=== PATIENT | male | born 1950 | race Caucasian/White ===

== ENCOUNTER → 2023-05-20 06:26 | Outpatient (REF) | payer MEDICARE, OTHER, SELFPAY ==
[2023-05-20 09:26] LABS: ALT (SGPT) 70 U/L (0-50); AST (SGOT) 40 U/L (17-59); Albumin 3.7 g/dl (3.5-5.0); Alkaline Phosphatase 134 U/L (38-126); Blood Urea Nitrogen 22 mg/dl (9-20); Calcium 9.6 mg/dl (8.4-10.2); Carbon Dioxide 26 mmol/L (22-30); Chloride 106 mmol/L (98-107); Glucose 118 mg/dl (70-99); HDL Cholesterol 46 mg/dl; LDL Cholesterol, Calculated 55 mg/dl; Potassium 4.4 mmol/L (3.5-5.1); Sodium 138 mmol/L (135-145); Total Bilirubin 0.8 mg/dl (0.2-1.3); Total Cholesterol 114 mg/dl (50-199); Total Protein 6.2 g/dl (6.3-8.2); Triglyceride 69 mg/dl (10-149); Very Low Density Lipoprotein 13 mg/dl (0-30); eGFR 54.07
[2023-05-20 09:56] LABS: Urine Albumin Negative (Neg - Trace); Urine Bilirubin Negative (Negative); Urine Character Clear (Clear); Urine Color Yellow; Urine Glucose Negative (Negative); Urine Ketone Negative (Negative); Urine Leukocyte Negative (Negative); Urine Nitrite Negative (Negative); Urine Occult Blood Negative (Negative); Urine Specific Gravity 1.015 (<1.030); Urine Urobilinogen Negative (Neg - 1+)
== END ==
LOC: HWLAB 06:26
PROVIDERS: ATTENDING PHYSICIAN Family Medicine
DX: R35.0 Frequency of micturition (principal); I10 Essential (primary) hypertension; E78.5 Hyperlipidemia, unspecified; N39.0 Urinary tract infection, site not specified; Z12.5 Encounter for screening for malignant neoplasm of prostate
CPT/HCPCS: 36415; 80053; 80061; 81003; G0103

== ENCOUNTER → 2023-05-26 06:32 | Outpatient (REF) | payer MEDICARE, OTHER, SELFPAY ==
[2023-05-26 10:05] LABS: Hematocrit 46.7 % (39.0-52.0); Hemoglobin 15.1 g/dL (13.0-18.0); Mean Corp Hgb Conc. 32.3 g/dL (33.0-37.0); Mean Corpuscular Hgb 31.2 pg (27.0-31.0); Mean Corpuscular Volume 96.5 fL (80.0-94.0); Mean Platelet Volume 11.2 fL (7.4-10.4); Platelet Count 267 10^3/uL (130-400); Red Blood Cell Count 4.84 10^6/uL (4.70-6.10); Red Cell Dist. Width 14.9 % (11.5-14.5); White Blood Cell Count 11.2 10^3/uL (4.8-10.8)
[2023-05-26 10:31] LABS: Free T4 1.26 ng/dl (0.78-2.19)
[2023-05-26 10:45] LABS: TSH 3.31 uIU/ml (0.47-4.68)
[2023-05-26 14:15] LABS: Lyme Antibody Screen, EIA Negative (Negative)
[2023-05-27 13:53] LABS: PSA Total 5.3 ng/mL (0.0-4.0)
== END ==
LOC: HWLAB 06:32
PROVIDERS: ATTENDING PHYSICIAN Family Medicine
DX: A69.20 Lyme disease, unspecified (principal); R35.0 Frequency of micturition; E03.9 Hypothyroidism, unspecified; R97.20 Elevated prostate specific antigen [PSA]
CPT/HCPCS: 36415; 84153; 84154; 84439; 84443; 85027; 86618

== ENCOUNTER → 2023-06-02 06:27 | Outpatient (REF) | payer MEDICARE, OTHER, SELFPAY ==
[2023-06-03 17:02] LABS: PSA Total 5.5 ng/mL (0.0-4.0)
== END ==
LOC: HWLAB 06:27
PROVIDERS: ATTENDING PHYSICIAN Specialist; FAMILY PHYSICIAN Family Medicine
DX: N40.1 Benign prostatic hyperplasia with lower urinary tract symptoms (principal); R97.20 Elevated prostate specific antigen [PSA]
CPT/HCPCS: 36415; 84153; 84154

== ENCOUNTER 2023-06-08 11:27 | Inpatient (IN) | payer MEDICARE, OTHER, SELFPAY ==
[2023-06-08] VITALS (13 sets, daily range): BP systolic 107–144; BP diastolic 76–99; BMI 26.7
[2023-06-08 08:02] LABS: % Basophils 0.1 % (0-2); % Eosinophils 1.8 % (0-6); % Immature Granulocytes 0.2 % (0-0.5); % Lymphocytes 16.2 % (20.5-51.1); % Monocytes 10.7 % (1.7-9.3); Absolute Eosinophils 0.2 10^3/uL (0-0.7); Absolute Lymphocytes 1.8 10^3/uL (1.2-3.4); Absolute Monocytes 1.2 10^3/uL (0.1-0.6); Hematocrit 46.5 % (39.0-52.0); Hemoglobin 15.6 g/dL (13.0-18.0); Mean Corp Hgb Conc. 33.5 g/dL (33.0-37.0); Mean Corpuscular Hgb 31.3 pg (27.0-31.0); Mean Corpuscular Volume 93.4 fL (80.0-94.0); Mean Platelet Volume 11.3 fL (7.4-10.4); Nucleated Red Blood Cells % 0 % (-); Platelet Count 246 10^3/uL (130-400); Red Blood Cell Count 4.98 10^6/uL (4.70-6.10); Red Cell Dist. Width 14.5 % (11.5-14.5); White Blood Cell Count 11.3 10^3/uL (4.8-10.8)
[2023-06-08 08:18] LABS: ALT (SGPT) 75 U/L (0-50); AST (SGOT) 38 U/L (17-59); Albumin 3.9 g/dl (3.5-5.0); Alkaline Phosphatase 129 U/L (38-126); Blood Urea Nitrogen 20 mg/dl (9-20); Calcium 9.4 mg/dl (8.4-10.2); Carbon Dioxide 23 mmol/L (22-30); Chloride 107 mmol/L (98-107); Glucose 115 mg/dl (70-99); Potassium 4.5 mmol/L (3.5-5.1); Sodium 135 mmol/L (135-145); Total Bilirubin 1.3 mg/dl (0.2-1.3); Total Protein 6.5 g/dl (6.3-8.2); eGFR > 60.00
--- NOTE | 2023-06-08 08:21 | ED.GENMED ---
History of Present Illness
General
Chief Complaint: Weakness
Source: patient
Time Seen by Provider: 06/08/23 08:01
Travel History
Have you had any contact with someone who has COVID-19?: No
Do you have any symptoms of coronavirus? Fever > 100 degrees, chills, cough, shortness of breath, sore throat, loss of taste or smell, muscle aches, or headache?: No
History of Present Illness
History of Present Illness:
72-year-old male presents to the emergency room complaining of feeling generalized weakness, dyspnea on exertion and some intermittent chest pressure over the past week or 2. Patient was actually seen by his primary care doctor for the symptoms and
did have some blood work sent. Patient has been unaware of a rapid heart rate. Patient has been experiencing insomnia over the past month or so as well. Sense of dyspnea and shortness of breath with exertion seems to be getting worse.
Phy Exam
Physical Exam
Physical Exam:
General: Awake, Alert, Oriented X3. No acute distress.
Vitals: Tachycardic
Head: Atraumatic
Eyes: Pupils equal, EOMI
Throat: Airway intact, no exudates
Neck: Trachea midline
Lungs: Clear and equal b/l
Heart: Tachycardic, irregular rate, no murmurs
Abd: Soft, Nontender, No pulsatile mass
Neuro: Nonfocal
Skin: Warm, dry, no rash
Extremities: pulses equal b/l, 1+ edema
Course
Orders/Labs/Results
Orders:
Orders
06/08/23 07:23
EKG [Electrocardiogram (*1)] Urgent
Reason for Study: Fatigue / Weakness
EKG- Treatment ONCE
06/08/23 07:47
CXR2 [CR Chest - 2 Views ] Urgent
Comment:
Reason For Exam: tachycardia
06/08/23 07:48
Complete Blood Count/With Diff Urgent
Comprehensive Metabolic Panel Urgent
NT-proBNP Urgent
Comment: ADD ON
Troponin I Urgent
06/08/23 08:20
Add On- LAB Urgent
Tests Added?: bnp
Diltiazem 125 mg/125 ml Nss [Cardizem] 125 mg in 125 ml IV NOW
Initial dose in mg/hr, then titrate:: 5
Titrate to keep:: Heart rate 80-100 bpm
Titrate by mg/hr:: 5 mg/hr
Frequency of titrations (minutes):: 15
Maximum dose in mg/hr:: 15
Diltiazem HCl [Cardizem] 15 mg IV NOW STA
06/08/23 10:18
Apixaban [Eliquis] 5 mg PO NOW STA
06/08/23 10:36
CARDIOLOGY CONSULT Routine
Consulting Provider: Telly Ren
Was physician already notified: Yes
06/08/23 11:00
Admit/Transfer Patient As Directed
Co-Sign Provider:
Level of Care: Inpatient admission
Assign to:: Telemetry
Physician / Group: Lakia/hospitalist
Diagnosis: A fib RVR, CHF
Reason for Telemetry: Arrhythmia
Date to Stop Telemetry: 06/11/23
Time to Stop Telemetry: 11:00
Reason for Hospitalization: A fib RVR, CHF
Expected length of stay greater than two midnights?: Yes
ELOS- Estimated Length of Stay in days: 3
I certify the patient meets the requirements for IP care: Yes
06/08/23 11:01
Code Status As Directed
Resuscitation Status: Full Code
06/08/23 11:12
Procalcitonin Urgent
PCT Algorithmm Indication: Respiratory
06/11/23 11:00
DC Protocol for Telemetry ONCE
Abnormal Lab Results
06/08/23
07:48
WBC 11.3 H 10^3/uL
(4.8-10.8)
MCH 31.3 H pg
(27.0-31.0)
MPV 11.3 H fL
(7.4-10.4)
Absolute Neuts (auto) 8.0 H 10^3/uL
(1.4-6.5)
Absolute Monos (auto) 1.2 H 10^3/uL
(0.1-0.6)
Lymphocytes % 16.2 L %
(20.5-51.1)
Monocytes % 10.7 H %
(1.7-9.3)
Glucose 115 H mg/dl
(70-99)
ALT 75 H U/L
(0-50)
Alkaline Phosphatase 129 H U/L
(38-126)
06/08/23 07:48
06/08/23 07:48
Vital Signs
Initial and Last Documented VS:
Initial Vital Signs
Temp Pulse Resp BP Pulse Ox
98.7 F 77 20 144/99 97
06/08/23 07:18 06/08/23 07:18 06/08/23 07:18 06/08/23 07:18 06/08/23 07:18
Last Documented Vital Signs
Temp Pulse Resp BP Pulse Ox
98.7 F 103 19 127/81 95
06/08/23 07:18 06/08/23 10:45 06/08/23 10:45 06/08/23 10:00 06/08/23 10:45
MDM/Problems Addressed
Differential Diagnosis Includes:
A-fib with rapid ventricular response, heart failure, electrolyte abnormality
MDM/Problems Addressed:
Patient presents with symptoms for about a week. EKG shows atrial fibrillation with rapid ventricular response. BNP mildly elevated. Chest x-ray shows changes in the right lower lung field which may represent heart failure or infiltrate. My
suspicion for acute pneumonia is low given no fever, no cough, normal white count. Patient has been in A-fib for an unknown period of time but likely at least a week. Therefore he is not a candidate for cardioversion. He was given a bolus of IV
Cardizem and started on an infusion to control his rate. He was given a dose of Eliquis. Patient will require hospitalization for rate control, cardiology evaluation.
*Radiology
Radiology exam reviewed: radiology read reviewed
*Pulse Oximetry
Patient hypoxic: no
*EKG
Interpreted by ED Provider?: Yes
Interpretation: abnormal
Heart Rate: 135
Rate: tachycardiac
Rhythm: a-fib
QRS Pattern: right bundle branch block
Ischemia: non-specific ST changes
*Chenille Machine Operator Interpretation
Rate: tachycardiac
Interpretation: abnormal
Heart Rate: 135
Rhythm: a-fib
*Critical Care Note
Total Time (30-74mins, 75-104mins- exclusive of procedures): 33 min
comment:
Critical care statement: A total of 33 minutes of critical care time was provided for this patient. This includes management of unstable vital signs, evaluation of the patient at bedside, reviewing the patient's pertinent medical records, discussion
with consultants, review of old EKGs and review of pertinent medical records. This time with separate from time utilized to perform the aforementioned documented procedures
ED Attending Note
-
Portions of this chart may have been created with voice recognition software.� Occasional wrong word or��sound alike� substitutions may have occurred due to the inherent limitations of voice recognition software.
Discharge Plan
Departure
Patient Disposition: Admit
Date of Disposition: 06/08/23
Time of Disposition: 10:15
Admit to: Telemetry
Presentation/result/management discussed w/ accepting MD/DO: Hospitalist
Condition: Fair
Discharge Problem:
Atrial fibrillation with RVR
Prescriptions:
No Action
ciprofloxacin HCl 500 MG tablet
500 mg PO BID Qty: 6 0RF
oxycodone-acetaminophen 5 MG/325 MG tablet
1 tab PO Q4HPRN PRN (Reason: pain) Qty: 20 0RF
Referrals:
Cortez Howell, [Family Provider] -
Interventions
Interventions:
*Risk Screen - Suicide Last Done: 06/08/23 07:22
*General Assessment Last Done: 06/08/23 07:22
*Neglect/Abuse Screening Last Done: 06/08/23 07:22
ED- Fall Risk Assessment Last Done: 06/08/23 10:59
*ED COVID-19 Vaccine History Last Done: 06/08/23 07:22
ED- Cardiac Assessment Last Done: 06/08/23 10:59
ED- Neurological Assessment Last Done: 06/08/23 10:59
ED- Pulmonary Assessment Last Done: 06/08/23 10:59
[2023-06-08 08:30] LABS: Troponin I 0.015 ng/ml
[2023-06-08] MEDS: CARDIZEM 15 MG IV (08:44)
[2023-06-08] MEDS: CARDIZEM 125 IV ×2 (08:45→17:33)
[2023-06-08 08:47] LABS: NT-proBNP 2210 pg/ml
--- NOTE | 2023-06-08 10:36 | HPS.HSE ---
Family Physician
-
Family Physician: Cortez Howell
Chief Complaint
-
lethargy/SOB/REYNOLDS
History of Present Illness
HPI: 72-year-old male PMH bladder cancer 8 years ago s/p surgery, HLD, HTN; p/w generalized weakness, lethargy, dyspnea on exertion and some intermittent chest pressure over the past 1-2 weeks.�He also noticed ankle swelling recently.
Patient was actually seen by his primary care doctor for these symptoms and had some blood work sent.�
Patient was unaware of a rapid heart rate.�
Medical History
Past Medical History
Past Medical History: Reports Other
Additional Past Medical History:
bladder cancer 8 years ago s/p surgery
HLD
HTN
Past Surgical History: Reports Other
Additional Past Surgical History:
bladder cancer 8 years ago s/p surgery
Social History
Tobacco: Former Smoker (quit Mar 2023 )
Alcohol: Occasional
Personal:
Living: With Family
Family History
Family History: Not pertinent
Allergies / Home Medications
Allergies reflects when Allergies were last updated in [facility].
Home Medications with original date entered in [facility]
Allergy/Medication List:
Medications on admission are unable to be verified or confirmed at this time.
Review of Systems
-
Respiratory: Reports See HPI and Trouble Breathing
Physical Exam
Vital Signs
Vital Signs
Temp Pulse Resp BP Pulse Ox
37.1 C 115 31 127/93 94
06/08/23 07:18 06/08/23 09:20 06/08/23 09:20 06/08/23 09:20 06/08/23 09:20
Physical Exam
General: Well Developed, Well Nourished, No Apparent Distress, Comfortable and Conversant
HEENT: NormoCephalic, Moist mucous membranes and Atraumatic
Respiratory: Clear and Non Labored Respirations; No Wheezes, Crackles or Accessory Resp Muscle Use
Cardiac: S1/S2 and Regular Rhythm; No Murmur or Rub
GI: Soft, Non Tender, Non Distended and Normal Bowel Sounds; No Organomegaly
Rectal: Deferred by Provider
Musculoskeletal: No Clubbing, No Cyanosis, Edema, Left Lower Extremity (mild) and Edema, Right Lower Extremity (mild)
Skin: Warm and Dry; No Rash
Neuro: Awake and Alert
Psych: Calm and Intact Judgment/Insight
Laboratory Results
-
06/08/23 07:48
06/08/23 07:48
Laboratory Results
Total Bilirubin 1.3 mg/dl (0.2-1.3) 06/08/23 07:48
AST 38 U/L (17-59) 06/08/23 07:48
ALT 75 U/L (0-50) H 06/08/23 07:48
Alkaline Phosphatase 129 U/L (38-126) H 06/08/23 07:48
Troponin I 0.015 ng/ml 06/08/23 07:48
Data Reviewed
-
Diagnostic Radiology: Image Personally Visualized and interpreted and Report Reviewed by me
Lab Data: Labs Reviewed by me
Impression/Plan
-
HPI: 72-year-old male PMH bladder cancer 8 years ago s/p surgery, HLD, HTN; p/w generalized weakness, lethargy, dyspnea on exertion and some intermittent chest pressure over the past 1-2 weeks.�He also noticed ankle swelling recently.
Patient was actually seen by his primary care doctor for these symptoms and had some blood work sent.�
Patient was unaware of a rapid heart rate.�
In the ED, pt was noted to be in A fib RVR. Cardizem drip started (with improved HR) and Eliquis ordered.
A/P:
# lethargy/SOB/REYNOLDS likely due to acute onset CHF relating to new onset A fib with RVR on admission
Started Cardizem drip, cont
Started Eliquis, cont
Start Lasix 40 mg IV daily, monitor daily weight
Check updated echo
Last echo was 2 years ago with EF 60-�65%.�Mild to moderate mitral regurgitation.
monitor in tele
recent TSH WNL at 3.31
Card CS
# CXR with RLL infiltrate
although read as pneumonia, however it is felt more likely due to CHF
Check procal to r/i or r/o pneumonia
hold Abx for now unless procal elevated
# likely reactive leucocytosis
# HTN
Cardizem drip as above
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
# HTN
AGRICULTURAL ENGINEER on Lipitor 10 mg daily
DVT ppx: Eliquis
FC
D/w at bedside
[2023-06-08] MEDS: ELIQUIS 5 MG PO ×2 (11:11→21:38)
[2023-06-08 11:54] LABS: Procalcitonin < 0.05 ng/ml (0.0-0.25)
[2023-06-08] MEDS: LASIX 40 MG IV ×2 (12:56→17:33)
--- NOTE | 2023-06-08 13:07 | PTCARENOTE ---
received pt from ED into 2251, afib on tele w HR 110, bp 130/97, + peripheral pulses, +1 edema to bilateral lower extremities. Lungs w fine crackles at bases, pox 96% on RA. +bs, tolerating PO intake. PIV x2 flush easily. Cardizem gtt infusing at
15ml/hr. Admission interview questions completed, pt was oriented to IVU room, questions encouraged.
--- NOTE | 2023-06-08 15:35 | CON.CAR ---
Consultation
Consultation Request
Date/Time Consultation Requested: 06/08/23, 10am
Date/Time Consultation Performed: 06/08/23, 2pm
Requesting Provider: Alva
Performing Provider: Mikal
Reason for Consultation: A fib with RVR
Medical History
-
Chief Complaint: SOB
History of Present Illness:
72 yo male with PMH of HTN, hyperlipidemia, bifascicular block, mild/moderate MR presents to ED with several weeks of REYNOLDS, palps, chest tightness, mild edema.
Found to be in new A fib with RVR, and also acute HF.
Past Medical History
Past Medical History: HTN, Hypercholesterolemia, Valvular Disease (mild/moderate MR) and Other (bladder cancer)
Past Surgical History: Orthopedic (carpal tunnel) and Other (bladder cancer resection)
Social History
Tobacco: Former Smoker
Family History
Family History: CAD (none in parents)
Allergies / Home Medications
Allergy/AdvReac Type Severity Reaction Status Date / Time
cefaclor [From Ceclor] Allergy Rash Verified 06/08/23 07:20
miocamycin Allergy Pharmacy Verified 06/08/23 07:20
to Review
mitomycin Allergy rash, fever Verified 06/08/23 07:20
Penicillins Allergy Rash Verified 06/08/23 07:20
Medication Instructions Recorded Confirmed Type
amlodipine 5 mg tablet 5 mg PO DAILY 06/08/23 06/08/23 History
aspirin 81 mg tablet 81 mg PO DAILY 06/08/23 06/08/23 History
atorvastatin 10 mg tablet 10 mg PO DAILY 06/08/23 06/08/23 History
telmisartan 80 mg tablet 80 mg PO DAILY 06/08/23 06/08/23 History
Review of Systems
-
History Source: Patient
All other systems: Negative unless noted
Constitutional: Fatigue
Respiratory: Trouble Breathing
Cardiac: Chest Pain and Palpitations
Musculoskeletal: Edema
Physical Exam
Vital Signs
Temp Pulse Resp BP Pulse Ox
97.9 F 106 16 130/97 96
06/08/23 12:32 06/08/23 12:32 06/08/23 12:32 06/08/23 12:32 06/08/23 13:40
Lab Results
06/08/23 07:48
06/08/23 07:48
Troponin I 0.015 ng/ml 06/08/23 07:48
Ivg-G-Fzaklvxhjiq Pept 2210 pg/ml 06/08/23 07:48
Physical Exam
General: Well Developed, Well Nourished and No Apparent Distress
HEENT: Normocephalic, Anicteric and Moist Mucous Membranes
Respiratory: Clear and Non Labored Respirations
Cardiac: S1/S2 (normal), Irregular Rhythm, Murmur (none) and Peripheral Edema (1+ LE edema)
GI: Soft, Non Tender and Non Distended
Musculoskeletal: No Clubbing, No Cyanosis and Edema (1+ LE edema)
Skin: Warm and Dry
Neuro: AO x 3
Psych: Calm
Impression / Plan
-
72 yo male with PMH of HTN, hyperlipidemia, bifascicular block, mild/moderate MR presents to ED with several weeks of REYNOLDS, palps, chest tightness, mild edema.
Found to be in new A fib with RVR, and also acute HF.
# A fib with RVR
-diltiazem drip: requires monitoring of tele
-if remains in A Fib in AM, will proceed with [facility]/DCCV given his symptoms
-CHADS2-VASC = 3. Eliquis 5mg bid for OAC.
# Acute HF, unknown type
-IV lasix (with monitoring of labs, tele, weight)
-echo tomorrow, and GDMT based on results
# HTN
-amlodipine held since on diltiazem
-telmisartan held to allow room for AV lucian agents
# Hyperlipidemia
-continue statin
# Bifascicular block
-stable on EKG
# Mild/moderate MR
-echo
Data Reviewed
-
EKG: Tracing Personally Visualized and interpreted (A fib with RVR, bifascicular block)
Medical Tests (Nuc Med, Echo etc): Report Reviewed by me (echo 09/2021: normal LVEF, mild LVH, mild/moderate MR)
Labs: Labs Reviewed by me
Old Records: Reviewed
[2023-06-08] MEDS: LIPITOR 10 MG PO (17:33)
--- NOTE | 2023-06-08 20:20 | PTCARENOTE ---
Assumed care of patient at change of shift. Patient AAO3, VSS, and denies any pain or discomfort. Ambulates self in room w/out difficulty. Tele monitor shows Afib w/ BBBC and occasional PVCs. Cardizem gtt currently infusing at 10ml/hr. Patient aware
of NPO status at midnight for echo/[facility] tomorrow on 06/08. Education packets provided for Afib and CHF. Patient aware of POC, and can make needs known. Call savage in reach.
[2023-06-08] MEDS: MELATONIN 3 MG PO (22:00)
[2023-06-09] VITALS (8 sets, daily range): BP systolic 107–120; BP diastolic 77–94; BMI 25.8
[2023-06-09 04:58] LABS: Hematocrit 44.1 % (39.0-52.0); Hemoglobin 14.4 g/dL (13.0-18.0); Mean Corp Hgb Conc. 32.7 g/dL (33.0-37.0); Mean Corpuscular Hgb 30.5 pg (27.0-31.0); Mean Corpuscular Volume 93.4 fL (80.0-94.0); Mean Platelet Volume 11.3 fL (7.4-10.4); Platelet Count 222 10^3/uL (130-400); Red Blood Cell Count 4.72 10^6/uL (4.70-6.10); Red Cell Dist. Width 14.1 % (11.5-14.5); White Blood Cell Count 9.9 10^3/uL (4.8-10.8)
[2023-06-09 05:31] LABS: ALT (SGPT) 61 U/L (0-50); AST (SGOT) 35 U/L (17-59); Albumin 3.2 g/dl (3.5-5.0); Alkaline Phosphatase 106 U/L (38-126); Blood Urea Nitrogen 25 mg/dl (9-20); Calcium 9.2 mg/dl (8.4-10.2); Carbon Dioxide 24 mmol/L (22-30); Chloride 106 mmol/L (98-107); Direct Bilirubin 0.2 mg/dl (0.0-0.4); Estimated Creatinine Clearance 59 ml/min; Glucose 98 mg/dl (70-99); Magnesium 1.9 mg/dl (1.6-2.3); Sodium 135 mmol/L (135-145); Total Bilirubin 1.1 mg/dl (0.2-1.3); Total Protein 5.7 g/dl (6.3-8.2); eGFR > 60.00
[2023-06-09] MEDS: CARDIZEM 125 IV (07:07)
--- NOTE | 2023-06-09 08:30 | PTCARENOTE ---
Assumed care of patient. Walking rounds completed with previous RN. Pt assessed while he was lying in bed. Pt alert and oriented x4. Denies pain, shortness of breath, and nausea. DEE with equal strength throughout-independent in the room. Pt's
at bedside. Afib on tele with rates in the 100s. BP stable 109/88. Bilateral radial and DP pulses palpable. +1 bilateral ankle edema. POX 94% on RA. Lungs diminished in the bases. No cough noted. Abdomen soft, nontender. +BS. Pt reports last BM
yesterday, denies constipation. Voiding yellow urine in the urinal. Right AC PIV infusing Cardizem gtt at 10mg/hr. Right upper arm 18g PIV intact. No skin issues noted. See MAR for medication administration. See worklist for complete nursing
assessment. Plan of care reviewed and patient in agreement. Pt completed mouth care and partial bath at the sink independently.
[2023-06-09] MEDS: ELIQUIS 5 MG PO ×2 (08:34→20:14)
[2023-06-09] MEDS: LASIX 40 MG IV ×2 (08:35→15:55)
--- NOTE | 2023-06-09 09:11 | W.PN.HOSP.TC ---
Today's Communication/Plan
-
Rpt CXR in am
Assessment / Plan
Assessment / Plan
72-year-old male with atrial fibrillation
Cardiovascular system S1-S2 irregular-tachycardic, systolic murmur at apex
Chest clear to auscultation
Abdomen soft and nontender
Trace pedal edema
# Shortness of breath with dyspnea on exertion secondary to acute CHF type unknown, likely secondary to new diagnosis of rapid A-fib
On Cardizem drip at 10 mg/hr
Eliquis started also
For cardioversion today
Continue diuresis
Echo ordered
TSH is normal
Cardiology following
# Chest x-ray with right lower lobe infiltrate
Patient does not have any clinical symptoms of pneumonia
Procalcitonin negative
Repeat chest x-ray tomorrow
# Elevated LFTs-trending down with diuresis
# Leukocytosis-likely reactive
# Hypertension-was on Norvasc and telmisartan prior to coming in
Currently on Cardizem drip alone
# Hyperlipidemia/Atherosclerosis-continue Lipitor
# History of bifascicular heart block
# Mild to moderate MR
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
Moderate hydronephrosis on the left
# Dq-jvcvhw-hcqy March 2023
# DVT prophylaxis-Eliquis
# Full code
Discussed with at bedside
Discussed with nursing
Anticipated Discharge: Within 24 hours
Subjective/Interval History
-
Date of Service: June 09, 2023
Objective Data
-
Labs:
Laboratory Results
06/09/23
04:23
WBC 9.9
Hgb 14.4
Hct 44.1
Plt Count 222
Sodium 135
Potassium 4.0
Chloride 106
Carbon Dioxide 24
BUN 25 H
Creatinine 1.2
Glucose 98
Calcium 9.2
Total Bilirubin 1.1
AST 35
ALT 61 H
Alkaline Phosphatase 106
Vital Signs:
Vital Signs
Temp Pulse Resp BP Pulse Ox
98.3 F 85 18 114/85 94
06/09/23 07:03 06/09/23 04:00 06/09/23 07:03 06/09/23 04:15 06/09/23 07:03
I&O
06/08/23 06/09/23 06/10/23
06:59 06:59 06:59
Intake Total 255 / 255
Output Total 1700 / 1700
Balance -1445 / -1445
--- NOTE | 2023-06-09 10:39 | W.PN.CD ---
Today's Communication / Plan
-
now back in NSR
continue diuresis
Impression / Plan
-
72 yo male with PMH of HTN, hyperlipidemia, bifascicular block, mild/moderate MR presents to ED with several weeks of REYNOLDS, palps, chest tightness, mild edema.
Found to be in new A fib with RVR, and also acute HF.
# A fib with RVR
-successful DCCV now in NSR
- Metoprolol 50 XL started
-CHADS2-VASC = 3. Eliquis 5mg bid for OAC.
# Acute HF, unknown type
-IV lasix (with monitoring of labs, tele, weight)
-echo tomorrow, and GDMT based on results
- continue IV diuresis
# HTN
-amlodipine held since on diltiazem
-telmisartan held to allow room for AV lucian agents
- cont to monitor
# Hyperlipidemia
-continue statin
# Bifascicular block
-stable on EKG
# Moderate MR, mild/mod TR and mild pulm HTN
-echo
Physical Exam
Vital Signs/Labs
Vital Signs
Temp Pulse Resp BP Pulse Ox
98.3 F 151 18 109/88 94
06/09/23 07:03 06/09/23 09:00 06/09/23 07:03 06/09/23 07:01 06/09/23 08:30
06/08/23 06/09/23 06/10/23
06:59 06:59 06:59
Actual Weight 179 lb 14.355 oz
06/09/23 04:23
06/09/23 04:23
Magnesium 1.9 mg/dl (1.6-2.3) 06/09/23 04:23
06/08/23
07:48
Mvr-U-Whnclwcyprj Pept 2210
LAB Results
03/24/24
07:48
Troponin I 0.015
Physical Exam
Constitutional: No acute distress
EENT: Anicteric
Cardiovascular: Rhythm/rate is irregular and Pedal edema present
Respiratory: Respiratory effort normal and Lungs clear to auscul.
GI: Soft
Neuro/Psych: AO x 3
Data Reviewed
-
Date of Service: June 09, 2023
EKG: Tracing Personally Visualized and interpreted (AF s/p DCCV now SR )
Echo: Tracing Personally Visualized and interpreted (discussed with patient and hospitalist)
Labs: Labs Reviewed by me
--- NOTE | 2023-06-09 11:16 | CM ---
Addendum entered by Bri Nuñez RN 06/09/23 12:31:
Reviewed cost information with the patient and he is agreeable to the cost.
Original Note:
Pricing on Eliquis through the patient's prescription plan, [employer], ID# [id number], patient will pay $506.21 for the first month then $126.55 after. Patient will need a prior authorization called into . I will place a free 30
day coupon in the patient's red discharge folder.
[2023-06-09] MEDS: TOPROL XL 50 MG PO (11:24)
--- NOTE | 2023-06-09 11:25 | PTCARENOTE ---
Pt received back from paint laboratory technician from [facility]/cardioversion. Pt in NSR with PACs with rates in the 70s. BP stable 107/77. Denies pain, shortness of breath, and nausea. POX 92% on RA. Pt's at bedside.
--- NOTE | 2023-06-09 12:30 | CM ---
Chart reviewed. Patient is independent of ADLS, lives with his in a [address], 1st floor set up, 0 LATANYA, 0 DME. Patient currently with no discharge needs. Plan is for the patient to return home. CM to follow
[2023-06-09] MEDS: LIPITOR 10 MG PO (17:28)
[2023-06-09] MEDS: MELATONIN 3 MG PO (22:08)
[2023-06-10] VITALS (7 sets, daily range): BP systolic 113–126; BP diastolic 84–90; BMI 25.2
[2023-06-10 04:46] LABS: Blood Urea Nitrogen 23 mg/dl (9-20); Calcium 9.2 mg/dl (8.4-10.2); Carbon Dioxide 26 mmol/L (22-30); Chloride 105 mmol/L (98-107); Estimated Creatinine Clearance 59 ml/min; Glucose 95 mg/dl (70-99); Potassium 4.1 mmol/L (3.5-5.1); Sodium 134 mmol/L (135-145); eGFR > 60.00
[2023-06-10] MEDS: LASIX 40 MG IV ×2 (08:28→15:44)
[2023-06-10] MEDS: ELIQUIS 5 MG PO ×2 (08:28→19:49)
--- NOTE | 2023-06-10 08:45 | W.PN.CD ---
Today's Communication / Plan
-
Last day IV diuresis, transition to 40mg PRN for weight gain
Cont metoprolol and telmisartan, stop amlodipine
Discussed plan and test findings with hospitalist and family.
We will sign off pleace call with questions/concerns.
Impression / Plan
-
72 yo male with PMH of HTN, hyperlipidemia, bifascicular block, mild/moderate MR presents to ED with several weeks of REYNOLDS, palps, chest tightness, mild edema.
Found to be in new A fib with RVR, and also acute HF.
# A fib with RVR
-It appears that he went into A-fib at the end of March and that likely precipitated his heart failure
-successful DCCV now in NSR
- Metoprolol 50 XL started
-CHADS2-VASC = 3. Eliquis 5mg bid for OAC.
# Acute HF, HFpEF likely precipitated from being in AF RVR
-IV lasix (with monitoring of labs, tele, weight)
-echo tomorrow, and GDMT based on results
- continue IV diuresis last day today
- 40 mg PRN on discharge for weight gain
# HTN
-stop amlodipine
- cont metoprolol 50 XL
- OK to add telmisartan
- cont to monitor
# Hyperlipidemia
-continue statin
# Bifascicular block
-stable on EKG
# Moderate MR, mild/mod TR and mild pulm HTN
-echo
Physical Exam
Vital Signs/Labs
Vital Signs
Temp Pulse Resp BP Pulse Ox
98.8 F 76 18 126/86 93
06/10/23 07:40 06/10/23 07:40 06/10/23 07:40 06/10/23 03:18 06/10/23 07:40
03/25/24 03/26/24 03/27/24
06:59 06:59 06:59
Actual Weight 179 lb 14.355 oz 175 lb 7.807 oz
06/09/23 04:23
06/10/23 03:24
Magnesium 1.9 mg/dl (1.6-2.3) 06/09/23 04:23
06/08/23
07:48
Mun-W-Hnzbbvfbunq Pept 2210
LAB Results
06/08/23
07:48
Troponin I 0.015
Physical Exam
Constitutional: No acute distress
EENT: Anicteric
Cardiovascular: Rhythm & rate is regular and Pedal edema present (trace at ankles )
Respiratory: Respiratory effort normal and Lungs clear to auscul.
GI: Soft
Neuro/Psych: AO x 3
Data Reviewed
-
Date of Service: June 10, 2023
EKG: Tracing Personally Visualized and interpreted (NSR with PACs, discussed with hospitalist )
Labs: Labs Reviewed by me
--- NOTE | 2023-06-10 08:53 | W.PN.HOSP.TC ---
Addendum entered and electronically signed by Darrell Ocampo MD 06/12/23 08:17:
Correction HR is regular
Original Note:
Today's Communication/Plan
-
Rpt CXR
IV lasix
Assessment / Plan
Assessment / Plan
72-year-old male with atrial fibrillation
Cardiovascular system S1-S2 irregular-tachycardic, systolic murmur at apex
Chest clear to auscultation
Abdomen soft and nontender
Trace pedal edema
# Shortness of breath with dyspnea on exertion secondary to acute CHF type unknown, likely secondary to new diagnosis of rapid A-fib
S/P Cardioversion 06/09/23
Eliquis to be continued
Continue diuresis per cardiology
Echo 06/09/2023-normal LV size and function. Ejection fraction 55 to 60%. Mild concentric LVH. Stage II diastolic dysfunction. Moderate MR. Mild to moderate TR. Mild pulmonary hypertension
TSH is normal
Cardiology following
# Chest x-ray with right lower lobe infiltrate
Patient does not have any clinical symptoms of pneumonia
Procalcitonin negative
Repeat chest x-ray today

# Elevated LFTs-trending down with diuresis
# Leukocytosis-likely reactive
# Hypertension-was on Norvasc and telmisartan prior to coming in
Started on Metoprolol XL
# Hyperlipidemia/Atherosclerosis-continue Lipitor
# History of bifascicular heart block
# Mild to moderate MR
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
Moderate hydronephrosis on the left
OP Urology follow up.
# [id number] March 2023
# DVT prophylaxis-Eliquis
# Full code
Discussed with at bedside
D/W Cardiology who thinks pt could use another day of IV diuresis
Discussed with nursing
Anticipated Discharge: Within 24 hours
Subjective/Interval History
-
Date of Service: June 10, 2023
Objective Data
-
Labs:
Laboratory Results
06/10/23
03:24
Sodium 134 L
Potassium 4.1
Chloride 105
Carbon Dioxide 26
BUN 23 H
Creatinine 1.2
Glucose 95
Calcium 9.2
Vital Signs:
Vital Signs
Temp Pulse Resp BP Pulse Ox
98.8 F 85 18 124/89 93
06/10/23 07:40 06/10/23 08:00 06/10/23 07:40 06/10/23 07:42 06/10/23 07:40
I&O
06/09/23 06/10/23 06/11/23
06:59 06:59 06:59
Intake Total 255 / 255 390 / 390
Output Total 1700 / 1700 3400 / 3400
Balance -1445 / -1445 -3010 / -3010
[2023-06-10] MEDS: TOPROL XL 50 MG PO (11:04)
--- NOTE | 2023-06-10 11:15 | CM ---
Chart reviewed. Patient is independent of ADLS, lives with his in a [address],, 1st floor set up, 0 LATANYA, 0 DME. Patient currently with no discharge needs. Plan is for the patient to return home. CM to follow
--- NOTE | 2023-06-10 17:12 | W.PN.UPDATE ---
Update Note
Progress Note Update
CXR noted.
Pt says he has had a cough.
Will do a course of Doxy
[2023-06-10] MEDS: LIPITOR 10 MG PO (18:10)
[2023-06-10] MEDS: VIBRAMYCIN 100 MG PO (19:49)
[2023-06-10] MEDS: MELATONIN 3 MG PO (22:17)
--- NOTE | 2023-06-10 22:56 | PTCARENOTE ---
Pt rec'd at shift change awake,alert no complaints. Sinus on telemetry with BBB and pac's. Voiding good amts in urinal. + 1 right foot edema,trace left foot. lungs clear with sat's 94-95% on R/A.
[2023-06-11 04:50] VITALS: BP 123/83
[2023-06-11 05:33] VITALS: BMI 24.4
[2023-06-11 07:09] VITALS: BP 114/83
[2023-06-11] MEDS: ELIQUIS 5 MG PO (07:54)
[2023-06-11] MEDS: TOPROL XL 50 MG PO (07:54)
[2023-06-11] MEDS: VIBRAMYCIN 100 MG PO (07:54)
[2023-06-11 11:13] VITALS: BP 117/82
--- NOTE | 2023-06-11 11:28 | W.PN.HOSP.TC ---
Addendum entered and electronically signed by Darrell Ocampo MD 06/12/23 08:17:
Correction HR is regular
Original Note:
Today's Communication/Plan
-
Discharge
Assessment / Plan
Assessment / Plan
72-year-old male with atrial fibrillation
Cardiovascular system S1-S2 irregular-tachycardic, systolic murmur at apex
Chest clear to auscultation
Abdomen soft and nontender
No pedal edema
# Shortness of breath with dyspnea on exertion secondary to acute CHF type unknown, likely secondary to new diagnosis of rapid A-fib
S/P Cardioversion 06/09/23
Eliquis to be continued
Echo 06/09/2023-normal LV size and function. Ejection fraction 55 to 60%. Mild concentric LVH. Stage II diastolic dysfunction. Moderate MR. Mild to moderate TR. Mild pulmonary hypertension
TSH is normal
# Chest x-ray with right lower lobe infiltrate
Patient does not have any clinical symptoms of pneumonia
Procalcitonin negative
Repeat chest x-ray showed Possible PNA
Started Doxy

# Elevated LFTs-trending down with diuresis
# Leukocytosis-likely reactive
# Hypertension-was on Norvasc and Telmisartan prior to coming in
Started on Metoprolol XL . Continue Telmisartan and stopped Norvasc.
# Hyperlipidemia/Atherosclerosis-continue Lipitor
# History of bifascicular heart block
# Mild to moderate MR
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
Moderate hydronephrosis on the left
OP Urology follow up.
# [id number] March 2023
# DVT prophylaxis-Eliquis
# Full code
Discussed with at bedside
Discussed with nursing
Discharge time 31 min
Anticipated Discharge: Today
Subjective/Interval History
-
Date of Service: June 11, 2023
Objective Data
-
Vital Signs:
Vital Signs
Temp Pulse Resp BP Pulse Ox
98 F 65 20 114/83 94
06/11/23 11:12 06/11/23 11:12 06/11/23 11:12 06/11/23 07:54 06/11/23 08:00
I&O
06/10/23 06/11/23 06/12/23
06:59 06:59 06:59
Intake Total 390 / 390
Output Total 3400 / 3400 4575 / 4575 250 / 250
Balance -3010 / -3010 -4575 / -4575 -250 / -250
--- NOTE | 2023-06-11 11:32 | W.DS.TRANS ---
Addendum entered and electronically signed by Darrell Ocampo MD 06/12/23 08:17:
Dictation- [id number]
Original Note:
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
-
Discharge Instructions:
Sleep Apnea Risk High
Discharge Diagnosis/Procedures CHF, Afib, Hypertension, High Cholesterol,
Atherosclerosis, Moderate Mitral Regurgitation,
History of bladder cancer
Diet 2 Gram Sodium,Restrict fluids to 64 oz
Driving Restrictions As prior to admission
Others Tests Repeat Chest X ray in 4-6 weeks
Other Services VN
Specialty Instructions Weigh Daily
Instructions: *[facility] Heart Failure Instructions
Stand-Alone Forms:
Changes to Home Medications: Yes
Discharge Medications:
DC Medications w/original date entered in [employer]
atorvastatin 10 mg tablet 10 mg PO DAILY High Cholesterol 06/08/23
telmisartan 80 mg tablet 80 mg PO DAILY Blood Pressure 06/08/23
apixaban 5 mg tablet (Eliquis) 5 mg PO BID Blood clot prevention/tx #60 tabs 06/10/23
doxycycline hyclate 100 mg capsule 100 mg PO Q12 Infection #8 caps 06/10/23
furosemide 40 mg tablet (Lasix) 40 mg PO MOFR PRN weight gain or edema #30 tabs 06/10/23
metoprolol succinate 50 mg tablet,extended release 24 hr 50 mg PO DAILY Arrhythmia #30 tabs 06/10/23
Home Medication Changes
New medicines
Doxycycline, furosemide and metoprolol
Stopped aspirin and Norvasc
Pending Results: No
--- NOTE | 2023-06-11 13:00 | PTCARENOTE ---
Assumed care of patient at beginning of this shift from previous RN. Patient offered no complaints. See worklist for full assessment and vital signs. Ordered for discharge. in room when reviewing d/c instructions and meds; verbalized
understanding of all with no questions. Patient preferred to ambulate on discharge instead of using wheelchair.
--- NOTE | 2023-06-11 14:38 | W.HF.CON ---
Heart Failure
- LV Function
Left ventricular function study result: LV Ejection fraction >40%
Ejection Fraction Percentage: 55-60
- ARNI
Patient already on ARNI: No
Heart Failure ARNI Not Indicated: LV Ejection Fraction >/= 40%
- ACEI/ARB
Patient already on ACEI/ARB: Yes
- Beta Augie
Patient already on Evidence Based Beta Augie: Yes
- Mineralocorticord Receptor Antagonist
Patient already on MRA: No
Heart Failure MRA Not Indicated: LV Ejection Fraction > 40%
- SGLT-2 Inhibitor
Patient already on SGLT-2 Inhibitor: No
Heart Failure SGLT-2 Inhibitor Not Indicated: LV Ejection Fraction >40%
- Afib Anticoagulation
Patient already on Anticoagulation for Afib: Yes
- NYHA CHF Classification
NYHA CHF Classification Level: Class III - Symptoms w/ min exertion, interferes w/ nml daily activity
- ACC/AHA Stage
ACC/AHA Stage: Stage C: Symptomatic Heart Failure
== END 2023-06-11 12:25 | disposition home health service (06) | DRG 308 ==
LOC: IVU 11:27
PROVIDERS: ADMITTING PHYSICIAN Internal Medicine; ATTENDING PHYSICIAN Hospitalist; CONSULT PHYSICIAN Internal Medicine; EMERGENCY PHYSICIAN Emergency Medicine; FAMILY PHYSICIAN Family Medicine
DX: I48.91 Unspecified atrial fibrillation (principal); I50.31 Acute diastolic (congestive) heart failure; I11.0 Hypertensive heart disease with heart failure; E78.00 Pure hypercholesterolemia, unspecified; I34.0 Nonrheumatic mitral (valve) insufficiency; I45.2 Bifascicular block; I27.20 Pulmonary hypertension, unspecified; Z85.51 Personal history of malignant neoplasm of bladder; Z87.891 Personal history of nicotine dependence
CPT/HCPCS: 71046; 80048; 80053; 82248; 83735; 83880; 84145; 84484; 85025; 85027; 92960; 93005; 93306; 93312; 93320; 93325; 96374; 99291; 99406

== ENCOUNTER → 2023-07-21 06:14 | Outpatient (REF) | payer MEDICARE, OTHER, SELFPAY ==
[2023-07-21 09:35] LABS: % Basophils 0.1 % (0-2); % Eosinophils 3.3 % (0-6); % Immature Granulocytes 0.3 % (0-0.5); % Lymphocytes 27.3 % (20.5-51.1); % Monocytes 11.9 % (1.7-9.3); % Neutrophils 57.1 % (42.2-75.2); Absolute Eosinophils 0.3 10^3/uL (0-0.7); Absolute Lymphocytes 2.5 10^3/uL (1.2-3.4); Absolute Monocytes 1.1 10^3/uL (0.1-0.6); Absolute Neutrophils 5.2 10^3/uL (1.4-6.5); Hematocrit 52.7 % (39.0-52.0); Hemoglobin 16.9 g/dL (13.0-18.0); Mean Corp Hgb Conc. 32.1 g/dL (33.0-37.0); Mean Corpuscular Hgb 30.3 pg (27.0-31.0); Mean Corpuscular Volume 94.6 fL (80.0-94.0); Nucleated Red Blood Cells % 0 % (-); Platelet Count 226 10^3/uL (130-400); Red Blood Cell Count 5.57 10^6/uL (4.70-6.10); Red Cell Dist. Width 13.9 % (11.5-14.5); White Blood Cell Count 9.1 10^3/uL (4.8-10.8)
[2023-07-21 09:42] LABS: ALT (SGPT) 30 U/L (0-50); AST (SGOT) 29 U/L (17-59); Albumin 3.9 g/dl (3.5-5.0); Alkaline Phosphatase 108 U/L (38-126); Blood Urea Nitrogen 26 mg/dl (9-20); Carbon Dioxide 27 mmol/L (22-30); Chloride 106 mmol/L (98-107); Glucose 109 mg/dl (70-99); HDL Cholesterol 54 mg/dl; LDL Cholesterol, Calculated 70 mg/dl; Potassium 4.6 mmol/L (3.5-5.1); Sodium 139 mmol/L (135-145); Total Bilirubin 0.7 mg/dl (0.2-1.3); Total Cholesterol 141 mg/dl (50-199); Total Protein 6.7 g/dl (6.3-8.2); Triglyceride 88 mg/dl (10-149); Very Low Density Lipoprotein 17 mg/dl (0-30); eGFR 58.73
== END ==
LOC: HWLAB 06:14
PROVIDERS: ATTENDING PHYSICIAN Family Medicine
DX: I10 Essential (primary) hypertension (principal); E78.5 Hyperlipidemia, unspecified; R53.83 Other fatigue; E03.9 Hypothyroidism, unspecified; R06.02 Shortness of breath
CPT/HCPCS: 36415; 71046; 80053; 80061; 84443; 85025

== ENCOUNTER → 2024-01-05 06:12 | Outpatient (REF) | payer MEDICARE, OTHER, SELFPAY ==
[2024-01-05 09:44] LABS: % Basophils 0.2 % (0-2); % Eosinophils 3.1 % (0-6); % Immature Granulocytes 0.2 % (0-0.5); % Monocytes 9.2 % (1.7-9.3); % Neutrophils 61.3 % (42.2-75.2); Absolute Eosinophils 0.3 10^3/uL (0-0.7); Absolute Lymphocytes 2.4 10^3/uL (1.2-3.4); Absolute Monocytes 0.9 10^3/uL (0.1-0.6); Absolute Neutrophils 5.7 10^3/uL (1.4-6.5); Hematocrit 49.4 % (39.0-52.0); Hemoglobin 16.1 g/dL (13.0-18.0); Mean Corp Hgb Conc. 32.6 g/dL (33.0-37.0); Mean Corpuscular Hgb 31.1 pg (27.0-31.0); Mean Corpuscular Volume 95.6 fL (80.0-94.0); Mean Platelet Volume 10.6 fL (7.4-10.4); Nucleated Red Blood Cells % 0 % (-); Platelet Count 237 10^3/uL (130-400); Red Blood Cell Count 5.17 10^6/uL (4.70-6.10); White Blood Cell Count 9.4 10^3/uL (4.8-10.8)
[2024-01-05 10:29] LABS: ALT (SGPT) 26 U/L (0-50); AST (SGOT) 28 U/L (17-59); Albumin 4.1 g/dl (3.5-5.0); Alkaline Phosphatase 89 U/L (38-126); Blood Urea Nitrogen 25 mg/dl (9-20); Calcium 9.8 mg/dl (8.4-10.2); Carbon Dioxide 27 mmol/L (22-30); Chloride 105 mmol/L (98-107); Glucose 98 mg/dl (70-99); HDL Cholesterol 53 mg/dl; LDL Cholesterol, Calculated 69 mg/dl; Potassium 4.5 mmol/L (3.5-5.1); Sodium 141 mmol/L (135-145); Total Bilirubin 0.7 mg/dl (0.2-1.3); Total Cholesterol 137 mg/dl (50-199); Total Protein 6.7 g/dl (6.3-8.2); Triglyceride 76 mg/dl (10-149); Very Low Density Lipoprotein 15 mg/dl (0-30); eGFR 53.74
[2024-01-05 11:02] LABS: PSA, Total - Screen 4.11 ng/ml (0.0-4.0); TSH 2.32 uIU/ml (0.47-4.68)
== END ==
LOC: HWLAB 06:12
PROVIDERS: ATTENDING PHYSICIAN Family Medicine
DX: R35.0 Frequency of micturition (principal); I10 Essential (primary) hypertension; E78.5 Hyperlipidemia, unspecified; R53.83 Other fatigue; E03.9 Hypothyroidism, unspecified; Z12.5 Encounter for screening for malignant neoplasm of prostate
CPT/HCPCS: 36415; 80053; 80061; 84443; 85025; G0103

== ENCOUNTER → 2024-04-02 15:06 | Outpatient (REF) | payer MEDICARE, OTHER, SELFPAY | LOC: HWRAD 15:06 | PROVIDERS: ATTENDING PHYSICIAN Specialist; FAMILY PHYSICIAN Family Medicine | DX: S05.50XA Penetrating wound with foreign body of unspecified eyeball, initial encounter (principal) | CPT/HCPCS: 70030 ==

== ENCOUNTER → 2024-04-07 12:53 | Outpatient (REF) | payer MEDICARE, OTHER, SELFPAY | LOC: MRI 3T 12:53 | PROVIDERS: ATTENDING PHYSICIAN Specialist; FAMILY PHYSICIAN Family Medicine | DX: R97.20 Elevated prostate specific antigen [PSA] (principal) | CPT/HCPCS: 72197; A9575 ==

== ENCOUNTER → 2024-08-10 06:08 | Outpatient (REF) | payer MEDICARE, OTHER, SELFPAY ==
[2024-08-10 10:21] LABS: ALT (SGPT) 29 U/L (0-50); AST (SGOT) 29 U/L (17-59); Albumin 4.1 g/dl (3.5-5.0); Alkaline Phosphatase 86 U/L (38-126); Blood Urea Nitrogen 21 mg/dl (9-20); Calcium 9.7 mg/dl (8.4-10.2); Carbon Dioxide 28 mmol/L (22-30); Chloride 109 mmol/L (98-107); Glucose 107 mg/dl (70-99); Potassium 4.5 mmol/L (3.5-5.1); Sodium 141 mmol/L (135-145); Total Bilirubin 0.7 mg/dl (0.2-1.3); Total Protein 6.7 g/dl (6.3-8.2); eGFR 58.37
[2024-08-10 11:08] LABS: Glycohemoglobin (HgbA1c) 6.1 % (4.0-5.6)
[2024-08-10 11:45] LABS: PSA, Total - Screen 4.86 ng/ml (0.0-4.0)
[2024-08-10 12:09] LABS: Urine Albumin 1+ (Neg - Trace); Urine Bilirubin Negative (Negative); Urine Character Clear (Clear); Urine Color Yellow; Urine Glucose Negative (Negative); Urine Ketone Negative (Negative); Urine Leukocyte Negative (Negative); Urine Nitrite Negative (Negative); Urine Occult Blood Negative (Negative); Urine Specific Gravity 1.015 (<1.030); Urine Urobilinogen Negative (Neg - 1+)
[2024-08-10 14:46] LABS: Urine Amorphous Seen; Urine Urothelial Cell 0-2 /LPF (FEW)
[2024-08-10 14:47] LABS: Urine Red Blood Cell 0-2 /HPF (0-2); Urine White Cell 0-2 /HPF (0-5)
== END ==
LOC: HWLAB 06:08
PROVIDERS: ATTENDING PHYSICIAN Family Medicine
DX: I10 Essential (primary) hypertension (principal); N39.0 Urinary tract infection, site not specified; E11.9 Type 2 diabetes mellitus without complications; R35.0 Frequency of micturition; Z12.5 Encounter for screening for malignant neoplasm of prostate
CPT/HCPCS: 36415; 80053; 81003; 81015; 83036; G0103